=== PATIENT | female | born 2000 | race Caucasian/White ===

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

== ENCOUNTER 2022-03-13 18:53 | Emergency (ER) | payer OTHER ==
[~2022-03-13] VITALS: Ht 152.4 cm; Wt 83.9 kg
[2022-03-13 18:58] VITALS: BP 138/88
--- NOTE | 2022-03-13 21:20 | NUR ---
PT AMBULATED TO BED 4
--- NOTE | 2022-03-13 21:28 | NUR ---
US AT BEDSIDE
--- NOTE | 2022-03-13 21:34 | NUR ---
21/F C/O LLQ PAIN SINCE THIS MORNING, STATES SHE TOOK TYLENOL WITH RELIEF. DENIES V/D OR URINARY SYMPTOMS. PT STATES SHE DOES GET NAUSEOUS SOMETIMES. DENIES SOB AND CHEST PAIN. A&OX4, SKIN INTACT, VITALS WNL FOR PT, AND STEADY GAIT. PMH: DENIES NKA
--- NOTE | 2022-03-13 21:34 | NUR ---
URINE GIVEN TO PLANNING ENGINEER
[2022-03-13 21:56] LABS: BILIRUBIN,URINE NEGATIVE (NEGATIVE); BLOOD, URINE TRACE-I (NEGATIVE); COLOR,URINE YELLOW (YELLOW); LEUKOCYTE ESTERASE ,URINE NEGATIVE (NEGATIVE); NITRITE, URINE NEGATIVE (NEGATIVE); UGLUCOSE NEGATIVE (NEGATIVE)
[2022-03-13 22:13] LABS: APPEARANCE,URINE SLIGHTLY HAZY (CLEAR)
[2022-03-13 22:15] LABS: CALCIUM OXALATE CRYSTALS,UR 0-10 /HPF (None Seen); RBC,URINE 0-5 /HPF (0-5)
[2022-03-13] MEDS ORDERED: CEPH-588 PO (22:31)
[2022-03-13] MEDS ORDERED: BEN10 PO (22:31)
[2022-03-13] MEDS ORDERED: DICYCLOMINE 20 MG/2 ML VIAL IM ONE (22:35)
[2022-03-13 23:05] VITALS: BP 138/88
--- NOTE | 2022-03-13 23:07 | NUR ---
Patient discharged with v/s stable. Written and verbal after care instructions given and explained. Patient alert, oriented and verbalized understanding of instructions. Ambulatory with steady gait. All questions addressed prior to discharge. ID band removed. Patient advised to follow up with PMD. Rx of BENTYL AND KEFLEX given. Patient educated on indication of medication including possible reaction and side effects. Opportunity to ask questions provided and answered.
== END 2022-03-13 23:04 | disposition home or self-care (01) ==
LOC: MED 18:53
DX: R10.32 Left lower quadrant pain (principal)
CPT/HCPCS: 74176; 76830; 81001; 81025; 87086; 96372; 99284; J0500; Q0092

== ENCOUNTER 2022-05-15 08:57 | Emergency (ER) | payer OTHER ==
[~2022-05-15] VITALS: Ht 152.4 cm; Wt 79.8 kg
[~2022-05-15 08:57] MED LIST: BEN10 PO; CEPH-588 PO
[2022-05-15 09:14] VITALS: BP 128/90
--- NOTE | 2022-05-15 09:39 | NUR ---
21 Y/O FEMALE BIB SELF C/O PELVIC/LOWER ABD PAIN X1 DAY. DENIES TAKING ANY MEDICATION FOR PAIN, DENIES ANY VAGINAL DISCHARGE, BLEEDING. LAST OB APPT 2 WEEKS AGO. STATES THAT SHE IS HAVING NAUSEA AND VOMITING. LMP 02/21/22, G1 NKA PMH: DENIES
--- NOTE | 2022-05-15 09:39 | NUR ---
PT OFFERED A CUP OF WATER
--- NOTE | 2022-05-15 09:45 | NUR ---
PT AMBULATED TO BATHROOM WITH STEADY GAIT
--- NOTE | 2022-05-15 11:31 | NUR ---
DR FLORES AT BEDSIDE FOR EVAL
--- NOTE | 2022-05-15 11:56 | NUR ---
US AT BEDSIDE
[2022-05-15 12:22] LABS: APPEARANCE,URINE CLOUDY (CLEAR); BILIRUBIN,URINE NEGATIVE (NEGATIVE); BLOOD, URINE TRACE-L (NEGATIVE); COLOR,URINE ORANGE (YELLOW); LEUKOCYTE ESTERASE ,URINE 1+ (NEGATIVE); NITRITE, URINE POSITIVE (NEGATIVE); UGLUCOSE NEGATIVE (NEGATIVE)
[2022-05-15 12:30] LABS: BASOPHILS # (AUTO) 0.1 K/uL (0.00-0.22); BASOPHILS % (AUTO) 0.4 % (0.0-2.0); EOSINOPHILS % (AUTO) 0.1 % (0.0-4.0); HEMATOCRIT 38.5 % (36-48); LYMPHOCYTES # (AUTO) 1.9 K/uL (2.5-16.5); LYMPHOCYTES % (AUTO) 10.4 % (20.5-51.1); MEAN CORPUSCULAR HEMOGLOBIN 31 pg (27-31); MEAN CORPUSCULAR HGB CONC 34 g/dL (33-37); MEAN CORPUSCULAR VOLUME 90.8 fL (80-94); MONOCYTES # (AUTO) 0.5 K/uL (0.8-1.0); MONOCYTES % (AUTO) 2.8 % (1.7-9.3); NEUTROPHILS # (AUTO) 15.6 K/uL (1.8-7.7); NEUTROPHILS % (AUTO) 86.3 % (42.2-75.2); PLATELET COUNT (AUTO) 311 K/uL (140-450); RED BLOOD CELL COUNT(AUTO) 4.24 MIL/uL (4.20-5.40); RED CELL DISTRIBUTION WIDTH 13.5 % (11.6-13.7); WHITE BLOOD COUNT (AUTO) 18.1 K/uL (4.5-11.0)
[2022-05-15 12:40] LABS: RBC,URINE 0-5 /HPF (0-5)
[2022-05-15 12:42] LABS: FINE GRANULAR CASTS,URINE 0-10 /LPF (None Seen)
[2022-05-15] MEDS ORDERED: NITR100C7 PO (13:08)
[2022-05-15 14:05] VITALS: BP 128/72
--- NOTE | 2022-05-15 14:05 | NUR ---
Patient discharged with v/s stable. Written and verbal after care instructions given and explained. Patient alert, oriented and verbalized understanding of instructions. Ambulatory with steady gait. All questions addressed prior to discharge. ID band removed. Patient advised to follow up with PMD. Rx of MACROBID 100MG given. Patient educated on indication of medication including possible reaction and side effects. Opportunity to ask questions provided and answered.
== END 2022-05-15 14:05 | disposition home or self-care (01) ==
LOC: MED 08:57
DX: O23.41 Unspecified infection of urinary tract in pregnancy, first trimester (principal); N39.0 Urinary tract infection, site not specified; Z3A.10 10 weeks gestation of pregnancy
CPT/HCPCS: 36415; 76817; 81001; 81025; 84702; 85025; 86900; 86901; 87086; 99284; Q0092